=== PATIENT | male | born 1990 | race Caucasian/White ===

== ENCOUNTER → 2016-05-15 | Outpatient (REF) | payer BC | LOC: M LAB REF 18:07 | PROVIDERS: ATTEND Physician Assistant | DX: Z20.2 Contact with and (suspected) exposure to infections with a predominantly sexual mode of transmission (principal) ==

== ENCOUNTER 2016-06-13 20:32 | Emergency (ER) | payer BC ==
[2016-06-13] MEDS ORDERED: LORazepam 2 MG/ML VIAL (J2060) As Ordered ONE (21:02)
--- NOTE | 2016-06-13 21:55 | EDDOCDS ---
Physician Documentation [facility] Name: Jonah Mcgraw Age: 26 yrs Sex: Male : 1990 Arrival Date: 06/13/2016 Time: 20:32 Bed 12 Private MD: NO PRIMARY PHYSICIAN, . Disposition: 06/13/16 21:41 Discharged to Home/Self Care. Impression: Hyperventilation, Other stimulant abuse with stimulant-induced anxiety disorder. - Condition is Stable. - Medication Reconciliation, Local Pharmacy Hours form. - Follow up: Private Physician; When: Call to arrange an appointment; Reason: Recheck today's complaints. - Problem is new. - Symptoms have improved. Historical: - Allergies: No known drug Allergies; - Home Meds: 1. none - PMHx: Anxiety; - PSHx: Tonsillectomy; Adenoidectomy; Ear Tubes; PRK Eye Surgery; - Social history: Smoking status: Patient states was never smoker of tobacco. No barriers to communication noted, The patient speaks fluent Georgian, Speaks appropriately for age. - Family history: Not pertinent. - : The pt / caregiver states he / she is not on anticoagulants. Home medication list is obtained from the patient. - Exposure Risk Screening:: None identified. Vital Signs: 06/13 20:35 BP 164 / 79 RA Sitting (auto/reg); Pulse 143 MON; Resp 26 S; Pulse Ox 100% on R/A; cln Weight 81.65 kg / 180.01 lbs (R); Height 5 ft. 11 in. (180.34 cm); 20:35 Temp 99.0; cln 21:04 BP 146 / 67 (auto/); js15 21:04 Pulse 114 MON; Pulse Ox 100% ; js15 21:19 BP 146 / 97 (auto/); js15 21:19 Pulse 110 MON; Pulse Ox 100% ; js15 21:34 BP 137 / 86 (auto/); js15 21:34 Pulse 102 MON; Resp 20; Pulse Ox 100% on R/A; js15 21:46 BP 155 / 70 (auto/); js15 21:46 Pulse 102 MON; Resp 20; Temp 101; Pulse Ox 100% ; js15 20:35 Body Mass Index 25.10 (81.65 kg, 180.34 cm) cln MDM: 20:58 IV Saline Lock ordered. cs11 20:58 NS 0.9% 500 ml IV at bolus once ordered. cs11 20:58 LORazepam 1 mg IVP once ordered. cs11 21:54 Financial registration complete. gjadarsh Administered Medications: 21:08 Drug: NS 0.9% 500 ml [sodium chloride 0.9 % intravenous solution] Route: IV; Rate: js15 bolus; Site: left antecubital; 21:40 Follow up: IV Status: Completed infusion; IV Intake: 500ml js15 21:08 Drug: LORazepam 1 mg [lorazepam 2 mg/mL injection solution (0.5 mL)] Route: IVP; Site: js15 left antecubital; 21:40 Follow up: Response: Anxiety is improved js15 Signatures: Laz Hart DO DO cs11 Amanda HoRN RN js15 Sobia Gonzalez CHRISTIN
--- NOTE | 2016-06-13 21:55 | EDDOCDS ---
Nurse's Notes [facility] Name: Jonah Mcgraw Age: 26 yrs Sex: Male : 1990 Arrival Date: 06/13/2016 Time: 20:32 Bed 12 Private MD: NO PRIMARY PHYSICIAN, . Diagnosis: Hyperventilation;Other stimulant abuse with stimulant-induced anxiety disorder Presentation: 06/13 20:42 Presenting complaint: Patient states: Pt states that he was drinking last night and js15 felt like he "got drunk a lot faster than normal"; went home and went to bed and woke up today and vomited. Roommate gave pt Spark by [employer]; pt states that he's now having tingling and hyperventilating. Onset: The symptoms/episode began/occurred 1 hour(s) ago. This patient has not experienced a previous allergic reaction. Anaphylaxis evaluation, the patient reports or I have noted the following symptoms which indicate a significant risk of anaphylaxis: no signs or symptoms of anaphylaxis were noted. Adult Sepsis Screening: The patient does not have new or worsening altered mentation. Patient has a respiratory rate of greater than or equal to 22 (1 point). Systolic blood pressure is greater than 100. Patient has a qSOFA score of 1- Negative Sepsis Screen. Suicide/Homicide risk assessment- the patient denies having any suicidal and/or homicidal ideations and does not present with any other emotional, behavioral or mental health complaints. Status: Patient is not a herbicide service sales representative or dependent. Transition of care: patient was not received from another setting of care. 20:42 Method Of Arrival: Wheelchair js15 20:42 Acuity: RAYMUNDO Level 3 js15 20:42 Acuity: RAYMUNDO Level 3 js15 Triage Assessment: 20:48 General: Appears distressed, uncomfortable, Behavior is anxious, restless, js15 hyperventilating. Pain: Location: chest. HIV screening NA for this visit Offered previously. The patient is triaged at the bedside. See Assessment in Nurses Notes section of ED record. Neurological: Level of Consciousness is awake, alert, obeys commands, Oriented to person, place, time. Respiratory: Airway is patent Respiratory effort is shallow, Respiratory pattern is hyperventilation Reports shortness of breath. Derm: Skin is pink, warm & dry. Historical: - Allergies: No known drug Allergies; - Home Meds: 1. none - PMHx: Anxiety; - PSHx: Tonsillectomy; Adenoidectomy; Ear Tubes; PRK Eye Surgery; - Social history: Smoking status: Patient states was never smoker of tobacco. No barriers to communication noted, The patient speaks fluent Serbian, Speaks appropriately for age. - Family history: Not pertinent. - : The pt / caregiver states he / she is not on anticoagulants. Home medication list is obtained from the patient. - Exposure Risk Screening:: None identified. Screenin:42 Screening information is obtained from the patient. Fall risk: No risks identified. js15 Assistance ADL's: requires no assistance with activities of daily living. Abuse/DV Screen: The patient / caregiver reports he/she is: not in a situation that causes fear, pain or injury. Nutritional screening: No deficits noted. Advance Directives: There is no active DNR order. home support is adequate. Assessment: 20:51 General: see triage note. js15 21:40 Reassessment: Patient appears in no apparent distress at this time. Patient states js15 feeling better. Patient states symptoms have improved. Pt resting on stretcher with respirations even and unlabored; awake and alert with father at bedside; skin pink, warm, dry; cardiac rhythm is sinus tach rate 105; will continue to monitor. Neurological: Level of Consciousness is awake, alert, obeys commands, Oriented to person, place, time. Cardiovascular: Rhythm is sinus tachycardia. Respiratory: Airway is patent Respiratory effort is even, unlabored, Respiratory pattern is regular, symmetrical, Breath sounds are clear bilaterally. Derm: Skin is pink, warm & dry. Vital Signs: 20:35 BP 164 / 79 RA Sitting (auto/reg); Pulse 143 MON; Resp 26 S; Pulse Ox 100% on R/A; cln Weight 81.65 kg (R); Height 5 ft. 11 in. (180.34 cm); 20:35 Temp 99.0; cln 21:04 BP 146 / 67 (auto/); js15 21:04 Pulse 114 MON; Pulse Ox 100% ; js15 21:19 BP 146 / 97 (auto/); js15 21:19 Pulse 110 MON; Pulse Ox 100% ; js15 21:34 BP 137 / 86 (auto/); js15 21:34 Pulse 102 MON; Resp 20; Pulse Ox 100% on R/A; js15 21:46 BP 155 / 70 (auto/); js15 21:46 Pulse 102 MON; Resp 20; Temp 101; Pulse Ox 100% ; js15 20:35 Body Mass Index 25.10 (81.65 kg, 180.34 cm) n Vitals: 20:35 Log In Time: June 13, 2016 at 20:35. cln ED Course: 20:34 Patient visited by Rut Jose PCA. cln 20:34 Patient moved to Waiting cln 20:35 NO PRIMARY PHYSICIAN, . is Private Physician. cln 20:37 Patient visited by Rut Jose PCA. cln 20:38 Patient moved to 12 cln 20:39 Laz Hart DO is Attending Physician. cs11 20:39 Patient visited by Laz Hart DO. cs11 20:47 Triage Initiated js15 20:52 Pt greeted and oriented to ED. Patient advised of names of staff involved in care, ana location of call lauren, wait times and NPO status. Accompanied by Family Member, Patient has correct armband on for positive identification. Placed in gown. Bed in low position. Call light in reach. Side rails up X2. court recording monitor on. Pulse ox on. NIBP on. 20:53 Patient visited by Usha Urrutia PCA. ana 21:00 Inserted saline lock: 18 gauge in left antecubital area The patient tolerated the js15 procedure well. 21:40 Patient visited by Amanda Ho RN. js15 21:53 The patient / caregiver is instructed regarding the plan of care and ED course. js15 21:53 Discontinued IV lock intact, bleeding controlled, pressure dressing applied, No js15 redness/swelling at site. No procedures done that require assistance. Administered Medications: 21:08 Drug: NS 0.9% 500 ml [sodium chloride 0.9 % intravenous solution] Route: IV; Rate: js15 bolus; Site: left antecubital; 21:40 Follow up: IV Status: Completed infusion; IV Intake: 500ml js15 21:08 Drug: LORazepam 1 mg [lorazepam 2 mg/mL injection solution (0.5 mL)] Route: IVP; Site: js15 left antecubital; 21:40 Follow up: Response: Anxiety is improved js15 Intake: 21:40 IV: 500.00ml; Total: 500.00ml. js15 Order Results: There are currently no results for this order. Outcome: 21:41 Discharge ordered by Provider. cs11 21:53 Discharge Assessment: Patient awake, alert and oriented x 3. No cognitive and/or js15 functional deficits noted. Patient verbalized understanding of disposition instructions. patient administered narcotics - no. The following High Risk Discharge criteria are identified: None. Discharged to home ambulatory, with parent. Condition: stable Condition: improved. Discharge instructions given to patient, Instructed on discharge instructions, follow up and referral plans. HYDRATION Demonstrated understanding of instructions, HYDRATION Pt was receptive of discharge instructions/ teaching. No special radiology studies were completed. Property sent home with patient. 21:55 Patient left the ED. js15 Signatures: Usha Urrutia, AIRCRAFT SYSTEMS REPAIRER AIRCRAFT SYSTEMS REPAIRER ana Laz Hart, DO cs11 Amanda Ho,RN RN js15 Rut Jose, AIRCRAFT SYSTEMS REPAIRER AIRCRAFT SYSTEMS REPAIRER cln Corrections: (The following items were deleted from the chart) 21:42 21:34 Pulse 102bpm; Monitor; Pulse Ox 100%; js15 js15 MTDD
--- NOTE | 2016-06-15 22:55 | EDDOCDS ---
Physician Documentation [facility] Name: Jonah Mcgraw Age: 26 yrs Sex: Male : 1990 Arrival Date: 06/13/2016 Time: 20:32 Bed 12 Private MD: NO PRIMARY PHYSICIAN, . Disposition: 06/13/16 21:41 Discharged to Home/Self Care. Impression: Hyperventilation, Other stimulant abuse with stimulant-induced anxiety disorder. - Condition is Stable. - Medication Reconciliation, Local Pharmacy Hours form. - Follow up: Private Physician; When: Call to arrange an appointment; Reason: Recheck today's complaints. - Problem is new. - Symptoms have improved. Historical: - Allergies: No known drug Allergies; - Home Meds: 1. none - PMHx: Anxiety; - PSHx: Tonsillectomy; Adenoidectomy; Ear Tubes; PRK Eye Surgery; - Social history: Smoking status: Patient states was never smoker of tobacco. No barriers to communication noted, The patient speaks fluent Sinhala, Speaks appropriately for age. - Family history: Not pertinent. - : The pt / caregiver states he / she is not on anticoagulants. Home medication list is obtained from the patient. - Exposure Risk Screening:: None identified. Vital Signs: 06/13 20:35 BP 164 / 79 RA Sitting (auto/reg); Pulse 143 MON; Resp 26 S; Pulse Ox 100% on R/A; cln Weight 81.65 kg / 180.01 lbs (R); Height 5 ft. 11 in. (180.34 cm); 20:35 Temp 99.0; cln 21:04 BP 146 / 67 (auto/); js15 21:04 Pulse 114 MON; Pulse Ox 100% ; js15 21:19 BP 146 / 97 (auto/); js15 21:19 Pulse 110 MON; Pulse Ox 100% ; js15 21:34 BP 137 / 86 (auto/); js15 21:34 Pulse 102 MON; Resp 20; Pulse Ox 100% on R/A; js15 21:46 BP 155 / 70 (auto/); js15 21:46 Pulse 102 MON; Resp 20; Temp 101; Pulse Ox 100% ; js15 20:35 Body Mass Index 25.10 (81.65 kg, 180.34 cm) cln MDM: 20:58 IV Saline Lock ordered. cs11 20:58 NS 0.9% 500 ml IV at bolus once ordered. cs11 20:58 LORazepam 1 mg IVP once ordered. cs11 21:54 Financial registration complete. gjadarsh 22:20 [facility] Payment Agreement was scanned into [employer] and attached to record. [facility] 06/14 11:43 T-Sheet-- Draft Copy was scanned into [employer] and attached to record. gb Administered Medications: 06/13 21:08 Drug: NS 0.9% 500 ml [sodium chloride 0.9 % intravenous solution] Route: IV; Rate: js15 bolus; Site: left antecubital; 21:40 Follow up: IV Status: Completed infusion; IV Intake: 500ml js15 21:08 Drug: LORazepam 1 mg [lorazepam 2 mg/mL injection solution (0.5 mL)] Route: IVP; Site: js15 left antecubital; 21:40 Follow up: Response: Anxiety is improved js15 Signatures: Gayatri Montemayor, Nickolas Reg Laz Cortes, DO cs11 Amanda Ho,RN RN js15 Sobia Gonzalez [facility] The chart was reviewed and I authenticate all verbal orders and agree with the evaluation and treatment provided.Attachments: :20 [facility] Payment Agreement [facility] 06/14 11:43 T-Sheet-- Draft Copy gb Chart Complete MTDD
--- NOTE | 2016-06-15 22:55 | EDDOCDS ---
Nurse's Notes [facility] Name: Jonah Mcgraw Age: 26 yrs Sex: Male : 1990 Arrival Date: 06/13/2016 Time: 20:32 Bed 12 Private MD: NO PRIMARY PHYSICIAN, . Diagnosis: Hyperventilation;Other stimulant abuse with stimulant-induced anxiety disorder Presentation: 06/13 20:42 Presenting complaint: Patient states: Pt states that he was drinking last night and js15 felt like he "got drunk a lot faster than normal"; went home and went to bed and woke up today and vomited. Roommate gave pt Spark by [employer]; pt states that he's now having tingling and hyperventilating. Onset: The symptoms/episode began/occurred 1 hour(s) ago. This patient has not experienced a previous allergic reaction. Anaphylaxis evaluation, the patient reports or I have noted the following symptoms which indicate a significant risk of anaphylaxis: no signs or symptoms of anaphylaxis were noted. Adult Sepsis Screening: The patient does not have new or worsening altered mentation. Patient has a respiratory rate of greater than or equal to 22 (1 point). Systolic blood pressure is greater than 100. Patient has a qSOFA score of 1- Negative Sepsis Screen. Suicide/Homicide risk assessment- the patient denies having any suicidal and/or homicidal ideations and does not present with any other emotional, behavioral or mental health complaints. Status: Patient is not a customer service advocate or dependent. Transition of care: patient was not received from another setting of care. 20:42 Method Of Arrival: Wheelchair js15 20:42 Acuity: RAYMUNDO Level 3 js15 20:42 Acuity: RAYMUNDO Level 3 js15 Triage Assessment: 20:48 General: Appears distressed, uncomfortable, Behavior is anxious, restless, js15 hyperventilating. Pain: Location: chest. HIV screening NA for this visit Offered previously. The patient is triaged at the bedside. See Assessment in Nurses Notes section of ED record. Neurological: Level of Consciousness is awake, alert, obeys commands, Oriented to person, place, time. Respiratory: Airway is patent Respiratory effort is shallow, Respiratory pattern is hyperventilation Reports shortness of breath. Derm: Skin is pink, warm & dry. Historical: - Allergies: No known drug Allergies; - Home Meds: 1. none - PMHx: Anxiety; - PSHx: Tonsillectomy; Adenoidectomy; Ear Tubes; PRK Eye Surgery; - Social history: Smoking status: Patient states was never smoker of tobacco. No barriers to communication noted, The patient speaks fluent Somali, Speaks appropriately for age. - Family history: Not pertinent. - : The pt / caregiver states he / she is not on anticoagulants. Home medication list is obtained from the patient. - Exposure Risk Screening:: None identified. Screenin:42 Screening information is obtained from the patient. Fall risk: No risks identified. js15 Assistance ADL's: requires no assistance with activities of daily living. Abuse/DV Screen: The patient / caregiver reports he/she is: not in a situation that causes fear, pain or injury. Nutritional screening: No deficits noted. Advance Directives: There is no active DNR order. home support is adequate. Assessment: 20:51 General: see triage note. js15 21:40 Reassessment: Patient appears in no apparent distress at this time. Patient states js15 feeling better. Patient states symptoms have improved. Pt resting on stretcher with respirations even and unlabored; awake and alert with father at bedside; skin pink, warm, dry; cardiac rhythm is sinus tach rate 105; will continue to monitor. Neurological: Level of Consciousness is awake, alert, obeys commands, Oriented to person, place, time. Cardiovascular: Rhythm is sinus tachycardia. Respiratory: Airway is patent Respiratory effort is even, unlabored, Respiratory pattern is regular, symmetrical, Breath sounds are clear bilaterally. Derm: Skin is pink, warm & dry. Vital Signs: 20:35 BP 164 / 79 RA Sitting (auto/reg); Pulse 143 MON; Resp 26 S; Pulse Ox 100% on R/A; cln Weight 81.65 kg (R); Height 5 ft. 11 in. (180.34 cm); 20:35 Temp 99.0; cln 21:04 BP 146 / 67 (auto/); js15 21:04 Pulse 114 MON; Pulse Ox 100% ; js15 21:19 BP 146 / 97 (auto/); js15 21:19 Pulse 110 MON; Pulse Ox 100% ; js15 21:34 BP 137 / 86 (auto/); js15 21:34 Pulse 102 MON; Resp 20; Pulse Ox 100% on R/A; js15 21:46 BP 155 / 70 (auto/); js15 21:46 Pulse 102 MON; Resp 20; Temp 101; Pulse Ox 100% ; js15 20:35 Body Mass Index 25.10 (81.65 kg, 180.34 cm) n Vitals: 20:35 Log In Time: June 13, 2016 at 20:35. cln ED Course: 20:34 Patient visited by Rut Jose PCA. cln 20:34 Patient moved to Waiting cln 20:35 NO PRIMARY PHYSICIAN, . is Private Physician. cln 20:37 Patient visited by Rut Jose PCA. cln 20:38 Patient moved to 12 cln 20:39 Laz Hart DO is Attending Physician. cs11 20:39 Patient visited by Laz Hart DO. cs11 20:47 Triage Initiated js15 20:52 Pt greeted and oriented to ED. Patient advised of names of staff involved in care, ana location of call lauren, wait times and NPO status. Accompanied by Family Member, Patient has correct armband on for positive identification. Placed in gown. Bed in low position. Call light in reach. Side rails up X2. ekg monitor on. Pulse ox on. NIBP on. 20:53 Patient visited by Usha Urrutia PCA. ana 21:00 Inserted saline lock: 18 gauge in left antecubital area The patient tolerated the js15 procedure well. 21:40 Patient visited by Amanda Ho RN. js15 21:53 The patient / caregiver is instructed regarding the plan of care and ED course. js15 21:53 Discontinued IV lock intact, bleeding controlled, pressure dressing applied, No js15 redness/swelling at site. No procedures done that require assistance. 22:20 [facility] Payment Agreement was scanned into [employer] and attached to record. [facility] 06/14 11:43 T-Sheet-- Draft Copy was scanned into [employer] and attached to record. gb Administered Medications: 06/13 21:08 Drug: NS 0.9% 500 ml [sodium chloride 0.9 % intravenous solution] Route: IV; Rate: js15 bolus; Site: left antecubital; 21:40 Follow up: IV Status: Completed infusion; IV Intake: 500ml js15 21:08 Drug: LORazepam 1 mg [lorazepam 2 mg/mL injection solution (0.5 mL)] Route: IVP; Site: js15 left antecubital; 21:40 Follow up: Response: Anxiety is improved js15 Intake: 21:40 IV: 500.00ml; Total: 500.00ml. js15 Order Results: There are currently no results for this order. Outcome: 21:41 Discharge ordered by Provider. cs11 21:53 Discharge Assessment: Patient awake, alert and oriented x 3. No cognitive and/or js15 functional deficits noted. Patient verbalized understanding of disposition instructions. patient administered narcotics - no. The following High Risk Discharge criteria are identified: None. Discharged to home ambulatory, with parent. Condition: stable Condition: improved. Discharge instructions given to patient, Instructed on discharge instructions, follow up and referral plans. HYDRATION Demonstrated understanding of instructions, HYDRATION Pt was receptive of discharge instructions/ teaching. No special radiology studies were completed. Property sent home with patient. 21:55 Patient left the ED. js15 Signatures: Gayatri Montemayor, Reg Reg gb Usha Urrutia, COTTON BROKER COTTON BROKER ana Laz Hart, DO cs11 Amanda Ho,RN RN js15 Sobia Gonzalez Crystal, COTTON BROKER COTTON BROKER cln Corrections: (The following items were deleted from the chart) 21:42 21:34 Pulse 102bpm; Monitor; Pulse Ox 100%; js15 js15 Chart Complete MTDD
--- NOTE | 2016-06-15 22:55 | EDDOCDS ---
Physician Documentation [facility] Name: Jonah Mcgraw Age: 26 yrs Sex: Male : 1990 Arrival Date: 06/13/2016 Time: 20:32 Bed 12 Private MD: NO PRIMARY PHYSICIAN, . Disposition: 06/13/16 21:41 Discharged to Home/Self Care. Impression: Hyperventilation, Other stimulant abuse with stimulant-induced anxiety disorder. - Condition is Stable. - Medication Reconciliation, Local Pharmacy Hours form. - Follow up: Private Physician; When: Call to arrange an appointment; Reason: Recheck today's complaints. - Problem is new. - Symptoms have improved. Historical: - Allergies: No known drug Allergies; - Home Meds: 1. none - PMHx: Anxiety; - PSHx: Tonsillectomy; Adenoidectomy; Ear Tubes; PRK Eye Surgery; - Social history: Smoking status: Patient states was never smoker of tobacco. No barriers to communication noted, The patient speaks fluent Persian, Speaks appropriately for age. - Family history: Not pertinent. - : The pt / caregiver states he / she is not on anticoagulants. Home medication list is obtained from the patient. - Exposure Risk Screening:: None identified. Vital Signs: 06/13 20:35 BP 164 / 79 RA Sitting (auto/reg); Pulse 143 MON; Resp 26 S; Pulse Ox 100% on R/A; cln Weight 81.65 kg / 180.01 lbs (R); Height 5 ft. 11 in. (180.34 cm); 20:35 Temp 99.0; cln 21:04 BP 146 / 67 (auto/); js15 21:04 Pulse 114 MON; Pulse Ox 100% ; js15 21:19 BP 146 / 97 (auto/); js15 21:19 Pulse 110 MON; Pulse Ox 100% ; js15 21:34 BP 137 / 86 (auto/); js15 21:34 Pulse 102 MON; Resp 20; Pulse Ox 100% on R/A; js15 21:46 BP 155 / 70 (auto/); js15 21:46 Pulse 102 MON; Resp 20; Temp 101; Pulse Ox 100% ; js15 20:35 Body Mass Index 25.10 (81.65 kg, 180.34 cm) cln MDM: 20:58 IV Saline Lock ordered. cs11 20:58 NS 0.9% 500 ml IV at bolus once ordered. cs11 20:58 LORazepam 1 mg IVP once ordered. cs11 21:54 Financial registration complete. gjadarsh 22:20 [facility] Payment Agreement was scanned into [employer] and attached to record. [facility] 06/14 11:43 T-Sheet-- Draft Copy was scanned into [employer] and attached to record. gb Administered Medications: 06/13 21:08 Drug: NS 0.9% 500 ml [sodium chloride 0.9 % intravenous solution] Route: IV; Rate: js15 bolus; Site: left antecubital; 21:40 Follow up: IV Status: Completed infusion; IV Intake: 500ml js15 21:08 Drug: LORazepam 1 mg [lorazepam 2 mg/mL injection solution (0.5 mL)] Route: IVP; Site: js15 left antecubital; 21:40 Follow up: Response: Anxiety is improved js15 Signatures: Gayatri Montemayor, Nickolas Reg Laz Cortes, DO cs11 Amanda Ho,RN RN js15 Sobia Gonzalez [facility] The chart was reviewed and I authenticate all verbal orders and agree with the evaluation and treatment provided.Attachments: :20 [facility] Payment Agreement [facility] 06/14 11:43 T-Sheet-- Draft Copy gb Chart Complete MTDD
== END 2016-06-13 21:55 | disposition home or self-care (01) ==
LOC: M ED 20:32
DX: R06.4 Hyperventilation (principal); F15.180 Other stimulant abuse with stimulant-induced anxiety disorder; Z90.89 Acquired absence of other organs
CPT/HCPCS: 96361; 96374; 99284; J2060

== ENCOUNTER → 2016-07-02 | Outpatient (REF) | payer BC | LOC: M LAB REF 18:31 | PROVIDERS: ATTEND Physician Assistant Medical | DX: Z20.89 Contact with and (suspected) exposure to other communicable diseases (principal) ==

== ENCOUNTER → 2016-10-20 | Outpatient (REF) | payer BC | LOC: M LAB REF 10-19 10:38 | PROVIDERS: ATTEND Physician Assistant | DX: R30.0 Dysuria (principal) ==

== ENCOUNTER → 2017-12-24 | Outpatient (REF) | payer BC ==
[2017-12-28 00:06] LABS: TISSUE TRANSGLUTAMINASE IgA 3 U/mL (0-3)
[2017-12-28 00:06] LABS: ENDOMYSIAL ABY IgA Negative (Negative)
== END ==
LOC: M LAB REF 11:07
DX: R19.7 Diarrhea, unspecified (principal)

== ENCOUNTER → 2018-05-22 | Outpatient (REF) | payer BC | LOC: M LAB REF 10:55 | PROVIDERS: ATTEND Physician Assistant | DX: J02.9 Acute pharyngitis, unspecified (principal) ==

== ENCOUNTER 2021-12-01 00:01 | Emergency (ER) | payer BC ==
[~2021-12-01] VITALS: Ht 180.3 cm; Wt 86.3 kg
[2021-12-01 00:02] VITALS: BP 145/95
[2021-12-01] MEDS ORDERED: AMOX875T PO (00:10)
== END 2021-12-01 02:31 | disposition home or self-care (01) ==
LOC: M ED 00:01
DX: U07.1 COVID-19 (principal); J02.9 Acute pharyngitis, unspecified; Z79.2 Long term (current) use of antibiotics

== ENCOUNTER → 2022-12-23 | Outpatient (REF) | payer BC ==
[~2022-12-23] MED LIST: AMOX875T PO
== END ==
LOC: M LAB REF 16:13
PROVIDERS: ATTEND Physician Assistant Medical
DX: J02.9 Acute pharyngitis, unspecified (principal)